=== PATIENT | male | born 2000 | race Caucasian/White ===

== ENCOUNTER 2020-11-21 12:48 | Emergency (ER) | payer OTHER, MEDICAID ==
[~2020-11-21] VITALS: Ht 182.9 cm; Wt 77.1 kg
[2020-11-21 12:50] VITALS: BP_SYST 119
[2020-11-21 14:42] VITALS: BP_SYST 127
== END 2020-11-21 14:46 ==
LOC: SED 12:48
DX: M25.522 Pain in left elbow (principal); V49.49XA Driver injured in collision with other motor vehicles in traffic accident, initial encounter; Y93.89 Activity, other specified; Y92.89 Other specified places as the place of occurrence of the external cause; Y99.8 Other external cause status
CPT/HCPCS: 99283